=== PATIENT | female | born 1950 | race Caucasian/White ===

== ENCOUNTER 2017-05-13 10:00 | Inpatient (IN) | payer BC, OTHER ==
[~2017-05-13] VITALS: Ht 172.7 cm; Wt 145.1 kg
[2017-05-13] VITALS (8 sets, daily range): BP systolic 93–117; BP diastolic 36–52
[2017-05-13 10:43] LABS: ABSOLUTE NEUTROPHILS 14.1 thou/uL (1.4-8.2); BASOPHILS 0.3 % (0.0-2.0); EOSINOPHILS 0.4 % (0.0-3.0); HEMATOCRIT 41.3 % (37.0-47.0); HEMOGLOBIN 13.8 gm/dL (12.0-15.0); LYMPHOCYTES 10.9 % (24.0-44.0); MCH 26.5 pg (26.0-34.0); MCHC 33.4 g/dL (28.0-37.0); MCV 79.3 fL (80.0-100.0); MONOCYTES 7.9 % (1.0-8.0); PLATELET COUNT 127 thou/uL (150-400); POLYS 80.5 % (36.0-66.0); RBC 5.21 mil/uL (4.20-5.00); RDW 17.5 % (10.5-14.5); WBC 17.5 thou/uL (4.0-11.0)
[2017-05-13 10:44] LABS: MANUAL DIFF NO
[2017-05-13 10:56] LABS: ALBUMIN 2.7 g/dL (3.4-5.0); CALCIUM 9.2 mg/dL (8.5-10.1); DIRECT BILIRUBIN 0.2 mg/dL (<0.1-0.3); TOTAL PROTEIN 6.7 g/dL (6.4-8.2)
[2017-05-13 11:16] LABS: CREATININE 2.5 mg/dL (0.6-1.0)
[2017-05-13 11:52] LABS: URINE BILIRUBIN 1+ (Negative); URINE BLOOD 3+ (Negative); URINE COLOR YELLOW; URINE GLUCOSE-RANDOM* 1+ (Negative); URINE KETONES NEGATIVE (Negative); URINE NITRITE NEGATIVE (Negative); URINE PROTEIN (DIPSTICK) 2+ (Negative); URINE UROBILINOGEN 0.2 E.U./dl (0.2-1.0)
[2017-05-13 11:58] LABS: ICTOTEST (BILI CONFIRMATORY) Negative (Negative)
[2017-05-13 12:03] LABS: BACTERIA 1-9 Few /HPF (None Seen); SQUAMOUS 0-3 Few /LPF (0-3); URINE WBC 6-15 Few /HPF (0-5)
[2017-05-13 12:04] LABS: CASTS None Seen /LPF (None Seen); CRYSTALS None Seen /LPF (None Seen); URINE RBC 3-10 Few /HPF (0-2)
[2017-05-13] MEDS ORDERED: ZOLOFT100 MG PO (13:52)
[2017-05-13] MEDS ORDERED: LIPITOR 20 MG T20 M1 PO (13:53)
[2017-05-13] MEDS ORDERED: CLARITIN10 MG PO (13:53)
[2017-05-13] MEDS ORDERED: FARXIGA10 MG PO (20:00)
[2017-05-13] MEDS ORDERED: LOSARTAN-HCTZ1 EAC3 PO (20:02)
[2017-05-13] MEDS ORDERED: AMARYL2 MG PO (20:03)
[2017-05-13] MEDS ORDERED: MOBIC15 MG PO (20:15)
[2017-05-13] MEDS ORDERED: VITAMIN D3 PO (20:19)
[2017-05-13] MEDS ORDERED: CENTRUM SILVER1 EAC4 PO (20:20)
[2017-05-14 04:00] VITALS: BP 120/52
[2017-05-14 04:01] LABS: HEMATOCRIT 38.2 % (37.0-47.0); HEMOGLOBIN 12.7 gm/dL (12.0-15.0); MCH 26.4 pg (26.0-34.0); MCHC 33.3 g/dL (28.0-37.0); MCV 79.4 fL (80.0-100.0); RBC 4.81 mil/uL (4.20-5.00); RDW 17.7 % (10.5-14.5); WBC 12.3 thou/uL (4.0-11.0)
[2017-05-14 04:16] LABS: ALBUMIN 2.5 g/dL (3.4-5.0); CALCIUM 8.8 mg/dL (8.5-10.1); CREATININE 2.3 mg/dL (0.6-1.0); POTASSIUM 3.3 mmol/L (3.5-5.1); TOTAL BILIRUBIN 0.5 mg/dL (<0.1-1.0); TOTAL PROTEIN 6.1 g/dL (6.4-8.2)
[2017-05-14 08:00] VITALS: BP 144/58
[2017-05-14 16:00] VITALS: BP 132/53
[2017-05-14 19:35] VITALS: BP 146/51
[2017-05-15 04:25] LABS: CALCIUM 8.4 mg/dL (8.5-10.1); CREATININE 1.5 mg/dL (0.6-1.0)
[2017-05-15 04:30] VITALS: BP 126/56
[2017-05-15 04:31] LABS: BASOPHILS 0.4 % (0.0-2.0); EOSINOPHILS 2.6 % (0.0-3.0); HEMATOCRIT 36.5 % (37.0-47.0); HEMOGLOBIN 12.5 gm/dL (12.0-15.0); LYMPHOCYTES 18.1 % (24.0-44.0); MCHC 34.4 g/dL (28.0-37.0); MCV 78.5 fL (80.0-100.0); MONOCYTES 6.9 % (1.0-8.0); PLATELET COUNT 152 thou/uL (150-400); RBC 4.64 mil/uL (4.20-5.00); RDW 17.4 % (10.5-14.5); WBC 8.3 thou/uL (4.0-11.0)
[2017-05-15 04:33] LABS: MANUAL DIFF NO
[2017-05-15 07:31] VITALS: BP 136/63
[2017-05-15 10:03] LABS: MAGNESIUM 1.9 mg/dL (1.8-2.4); POTASSIUM 3.9 mmol/L (3.5-5.1)
[2017-05-15 15:36] VITALS: BP 138/58
[2017-05-15 20:00] VITALS: BP 129/81
[2017-05-16 05:10] VITALS: BP 154/69
[2017-05-16 05:18] LABS: CALCIUM 8.4 mg/dL (8.5-10.1); CREATININE 1.3 mg/dL (0.6-1.0); POTASSIUM 3.6 mmol/L (3.5-5.1)
[2017-05-16 08:00] VITALS: BP 145/59
[2017-05-16] MEDS ORDERED: VITAMIN D2000 UNIT PO (10:38)
[2017-05-16] MEDS ORDERED: PROBIOTIC1 EAC1 PO (10:38)
[2017-05-16] MEDS ORDERED: COLACE100 MG PO (10:38)
[2017-05-16 10:56] VITALS: BP 145/59
[2017-05-17 04:07] LABS: GLYCOHEMOGLOBIN (HGB A1C) 7.3 % (4.8-5.6)
== END 2017-05-16 14:00 | disposition home or self-care (01) | DRG 391 ==
LOC: ER 10:00 → 4S 12:58
PROVIDERS: Internal Medicine Endocrinology, Diabetes & Metabolism; Nurse Practitioner; Nurse Practitioner Family
PROC: 5A09357 Assistance with Respiratory Ventilation, Less than 24 Consecutive Hours, Continuous Positive Airway Pressure (ICD-10-PCS; principal; 2017-05-13)
DX: K52.9 Noninfective gastroenteritis and colitis, unspecified (principal); G93.41 Metabolic encephalopathy; N12 Tubulo-interstitial nephritis, not specified as acute or chronic; E44.0 Moderate protein-calorie malnutrition; Z68.42 Body mass index [BMI] 45.0-49.9, adult; E87.1 Hypo-osmolality and hyponatremia; N17.9 Acute kidney failure, unspecified; E87.6 Hypokalemia; E66.9 Obesity, unspecified; E11.9 Type 2 diabetes mellitus without complications; R26.81 Unsteadiness on feet; D47.3 Essential (hemorrhagic) thrombocythemia; G47.33 Obstructive sleep apnea (adult) (pediatric); E78.5 Hyperlipidemia, unspecified; I10 Essential (primary) hypertension; F32.9 Major depressive disorder, single episode, unspecified; R13.10 Dysphagia, unspecified; Z79.899 Other long term (current) drug therapy; Z88.2 Allergy status to sulfonamides; Z88.6 Allergy status to analgesic agent; Z88.8 Allergy status to other drugs, medicaments and biological substances; Z79.4 Long term (current) use of insulin; Z90.49 Acquired absence of other specified parts of digestive tract; Z83.3 Family history of diabetes mellitus; Z82.49 Family history of ischemic heart disease and other diseases of the circulatory system
CPT/HCPCS: 10195

== ENCOUNTER → 2019-09-13 | Outpatient (CLI) | payer BC, OTHER ==
[~2019-09-13] MED LIST: AMARYL2 MG PO; CENTRUM SILVER1 EAC4 PO; CLARITIN10 MG PO; COLACE100 MG PO; FARXIGA10 MG PO; LIPITOR 20 MG T20 M1 PO; LOSARTAN-HCTZ1 EAC3 PO; MOBIC15 MG PO; PROBIOTIC1 EAC1 PO; VITAMIN D2000 UNIT PO; VITAMIN D3 PO; ZOLOFT100 MG PO
== END ==
LOC: ULTRA 15:35
DX: I82.402 Acute embolism and thrombosis of unspecified deep veins of left lower extremity (principal); I82.412 Acute embolism and thrombosis of left femoral vein; I82.432 Acute embolism and thrombosis of left popliteal vein

== ENCOUNTER → 2019-09-14 | Outpatient (CLI) | payer BC, OTHER ==
[2019-09-14 10:21] LABS: CREATININE 1.2 mg/dL (0.6-1.0)
== END ==
LOC: CAT 09:45
PROVIDERS: Family Medicine
DX: I82.4Z2 Acute embolism and thrombosis of unspecified deep veins of left distal lower extremity (principal); J98.4 Other disorders of lung; R16.0 Hepatomegaly, not elsewhere classified; K76.0 Fatty (change of) liver, not elsewhere classified; M25.78 Osteophyte, vertebrae